=== PATIENT | female | born 1995 | race Caucasian/White ===

== ENCOUNTER 2017-03-24 23:55 | Emergency (ER) | payer BC, OTHER ==
[2017-03-25] MEDS ORDERED: GI Cocktail Oral Solution 30 ML PO ONE (00:05)
--- NOTE | 2017-03-25 00:11 | EDM.PDOC ---
ED HPI GENERAL MEDICAL PROBLEM - General Chief Complaint: Abdominal Pain Stated Complaint: Epigastric pain, heartburn Time Seen by Provider: 03/25/17 00:04 Source of Information: Reports: Patient History Limitations: Reports: No Limitations - History of Present Illness INITIAL COMMENTS - FREE TEXT/NARRATIVE: Patient reports having epigastric pain 10-15 minutes after taking her zoloft this evening. She reports she ate a chicken sandwich at around 2130 which is late for her. She does not usually eat anything this late. Complains of sore throat for the last 2 days with night sweats and chills. Works at a daycare. Recent surgery includes cholecystectomy in October, February had tonsils and adenoids removed. Zoloft for anxiety. States pain is in the epigastric region , states some radiation to her back. Denies headache, SOB, chest pain, no blood in urine or stool. No diarrhea, nausea, or vomiting. No history of heart or lung conditions. Has hereditary spherocytosis. Onset: Today, Sudden Location: Reports: Abdomen Quality: Reports: Burning Severity: Mild Improves with: Reports: None Worsens with: Reports: None Associated Symptoms: Reports: Fever/Chills epigastric pain Pain Score (Numeric/FACES): 8 - Related Data Allergies Allergy/AdvReac Type Severity Reaction Status Date / Time No Known Allergies Allergy Verified 03/25/17 00:06 Home Meds: Home Meds Sertraline [Zoloft] 100 mg PO BEDTIME 03/25/17 [History] ED ROS GENERAL - Review of Systems Review Of Systems: See Below Constitutional: Reports: Chills, Night Sweats HEENT: Reports: Throat Pain Respiratory: Reports: No Symptoms Cardiovascular: Reports: No Symptoms Endocrine: Reports: No Symptoms GI/Abdominal: Reports: Abdominal Pain : Reports: No Symptoms Musculoskeletal: Reports: No Symptoms Skin: Reports: No Symptoms Neurological: Reports: No Symptoms Psychiatric: Reports: No Symptoms Hematologic/Lymphatic: Reports: No Symptoms Immunologic: Reports: No Symptoms ED EXAM, GI/ABD - Physical Exam Exam: See Below Exam Limited By: No Limitations General Appearance: Alert, WD/WN, No Apparent Distress Eyes: Bilateral: EOMI Ears: Normal TMs Nose: Normal Inspection Throat/Mouth: Normal Inspection, Inflammation (posterior oropharynx) Head: Atraumatic, Normocephalic Neck: Full Range of Motion, Lymphadenopathy (R), Tender Lateral. No: Carotid Bruit Respiratory/Chest: No Respiratory Distress, Lungs Clear, Normal Breath Sounds, No Accessory Muscle Use, Chest Non-Tender Cardiovascular: Normal Peripheral Pulses, Regular Rate, Rhythm, No Edema, No Murmur GI/Abdominal Exam: Normal Bowel Sounds, Soft, No Organomegaly, No Distention, No Abnormal Bruit, No Mass, Tender (to mid epigastric region) Back Exam: Normal Inspection Extremities: Normal Inspection, Normal Range of Motion, Non-Tender, No Pedal Edema, Normal Capillary Refill Neurological: Alert, Oriented, CN II-XII Intact, Normal Cognition, Normal Gait, Normal Reflexes, No Motor/Sensory Deficits Psychiatric: Normal Affect, Normal Mood Skin Exam: Warm, Dry, Intact, Normal Color Lymphatic: No Adenopathy Course - Vital Signs Last Recorded V/S: Last Vital Signs Temp 36.5 C 03/24/17 23:55 Pulse 70 03/24/17 23:55 Resp 20 03/24/17 23:55 BP 132/86 03/24/17 23:55 Pulse Ox 97 03/24/17 23:55 - Orders/Labs/Meds Orders: Active Orders 24 hr Category Date Time Status STREP SCRN A RAPID W CULT CONF [RM] Stat Lab 03/25/17 00:05 Uncollected GI Cocktail Med 03/25/17 00:05 Once 30 ml PO ONETIME ONE Departure - Departure Time of Disposition: 00:46 Disposition: Home, Self-Care 01 Condition: Good Clinical Impression: GERD (gastroesophageal reflux disease) - Discharge Information Instructions: Food Choices for Gastroesophageal Reflux Disease, Adult, Heartburn, [id number] Additional Instructions: Make sure to be careful of the foods you eat at night If you continue to have heartburn problems, see a primary care provider as needed Drink plenty of water Eat food that is lower in fat and grease I have included instructions for heartburn and diet ideas Please call us at any time if you have any questions or concerns - Problem List & Annotations (1) GERD (gastroesophageal reflux disease) SNOMED Code(s): 118938109 Code(s): K21.9 - GASTRO-ESOPHAGEAL REFLUX DISEASE WITHOUT ESOPHAGITIS Status: Acute Priority: Low Current Visit: Yes Qualifiers: Esophagitis presence: esophagitis presence not specified Qualified Code(s) : K21.9 - Gastro-esophageal reflux disease without esophagitis - Problem List Review Problem List Initiated/Reviewed/Updated: Yes - My Orders Last 24 Hours: My Active Orders 03/25/17 00:05 STREP SCRN A RAPID W CULT CONF [RM] Stat GI Cocktail 30 ml PO ONETIME ONE - Assessment/Plan Last 24 Hours: My Active Orders 03/25/17 00:05 STREP SCRN A RAPID W CULT CONF [RM] Stat GI Cocktail 30 ml PO ONETIME ONE Assessment:: GERD Plan: Make sure to be careful of the foods you eat at night If you continue to have heartburn problems, see a primary care provider as needed Drink plenty of water Eat food that is lower in fat and grease I have included instructions for heartburn and diet ideas Please call us at any time if you have any questions or concerns
[2017-03-25] MEDS ORDERED: Calcium Carbonate 750 MG Tab.Chew PO ONE (00:46)
== END 2017-03-25 00:58 | disposition home or self-care (01) ==
LOC: VM.ED 23:55
DX: K21.9 Gastro-esophageal reflux disease without esophagitis (principal)
CPT/HCPCS: 87081; 87880; 99283; A9270

== ENCOUNTER 2017-10-20 17:15 | Emergency (ER) | payer BC, OTHER ==
[2017-10-20] MEDS: Take Home: Doxycycline 100 MG Tab, 4 Tab Pack PO ONE (18:25)
--- NOTE | 2017-10-21 13:31 | EDM.PDOC ---
ED HPI GENERAL MEDICAL PROBLEM - General Chief Complaint: Gastrointestinal Problem Stated Complaint: chlamydia Time Seen by Provider: 10/20/17 17:35 Source of Information: Reports: Patient History Limitations: Reports: No Limitations - History of Present Illness INITIAL COMMENTS - FREE TEXT/NARRATIVE: PtAni was seen at [facility] in [place] on Wednesday and diagnosed with a UTI. She was experiencing dysuria and frequency. No fever or chills. She was started on Macrobid. She also was experiencing some vaginal discharge and was diagnosed with chlamydia. She was prescribed 1 one-time dose of azithromycin which she took, and subsequently vomited back up. She states that she is not experiencing any fever or chills. She is concerned at her chlamydia isn't treated because she vomited shortly after taking it. Onset: Today Location: Reports: Pelvis (dysuria, frequency, vaginal discharge) Quality: Reports: Ache Severity: Moderate Vaginal Pain Score (Numeric/FACES): 6 - Related Data Allergies Allergy/AdvReac Type Severity Reaction Status Date / Time spermicide Allergy Other Uncoded 10/20/17 17:49 Home Meds: Home Meds Sertraline [Zoloft] 200 mg PO BEDTIME 03/25/17 [History] medroxyPROGESTERone Acetate [Depo-Provera] 150 mg IM ASDIRECTED 06/21/17 [ History] Nitrofurantoin Macrocrystal [Macrodantin] 100 mg BID 10/20/17 [History] hydrOXYzine HCl [hydrOXYzine] 10 mg BEDTIME 10/20/17 [History] Past Medical History Gastrointestinal History: Reports: Other (See Below) Other Gastrointestinal History: enlarged spleen Musculoskeletal History: Reports: Other (See Below) Other Musculoskeletal History: "bad hips" Neurological History: Reports: Concussion, Migraines Psychiatric History: Reports: Anxiety, Depression Hematologic History: Reports: Other (See Below) Other Hematologic History: heredity spherecytosis - Past Surgical History HEENT Surgical History: Reports: Adenoidectomy, Tonsillectomy, Other (See Below) Other HEENT Surgeries/Procedures: wisdom teeth removed GI Surgical History: Reports: Cholecystectomy, Other (See Below) Other GI Surgeries/Procedures: October 2016 Social & Family History - Tobacco Use Smoking Status *Q: Never Smoker - Recreational Drug Use Recreational Drug Use: No ED ROS GENERAL - Review of Systems Review Of Systems: See Below Constitutional: Reports: No Symptoms HEENT: Reports: No Symptoms Respiratory: Reports: No Symptoms Cardiovascular: Reports: No Symptoms Endocrine: Reports: No Symptoms GI/Abdominal: Reports: No Symptoms : Reports: Discharge, Dysuria, Frequency Musculoskeletal: Reports: No Symptoms Skin: Reports: No Symptoms Neurological: Reports: No Symptoms Psychiatric: Reports: No Symptoms Hematologic/Lymphatic: Reports: No Symptoms Immunologic: Reports: No Symptoms ED EXAM, GENERAL - Physical Exam Exam: See Below Exam Limited By: No Limitations General Appearance: Alert, WD/WN, No Apparent Distress Head: Atraumatic, Normocephalic Neck: Normal Inspection, Supple, Non-Tender, Full Range of Motion Respiratory/Chest: No Respiratory Distress, Lungs Clear, Normal Breath Sounds, No Accessory Muscle Use, Chest Non-Tender Cardiovascular: Normal Peripheral Pulses, Regular Rate, Rhythm, No Edema, No Gallop, No JVD, No Murmur, No Rub Peripheral Pulses: 3+: Radial (L), Radial (R) GI/Abdominal: Normal Bowel Sounds, Soft, Non-Tender, No Organomegaly, No Distention, No Abnormal Bruit, No Mass (Female) Exam: Deferred Rectal (Female) Exam: Deferred Back Exam: Normal Inspection, Full Range of Motion, NT Extremities: Normal Inspection, Normal Range of Motion, Non-Tender, Normal Capillary Refill, No Pedal Edema Neurological: Alert, Oriented, CN II-XII Intact, Normal Cognition, Normal Gait, Normal Reflexes, No Motor/Sensory Deficits Psychiatric: Normal Affect, Normal Mood Skin Exam: Warm, Dry, Intact, Normal Color, No Rash Course - Vital Signs Last Recorded V/S: Last Vital Signs Temp 36.6 C 10/20/17 17:15 Pulse 80 10/20/17 17:15 Resp 16 10/20/17 17:15 BP 126/81 10/20/17 17:15 Pulse Ox - Orders/Labs/Meds Meds: Medications Discontinued Medications Generic Name Dose Route Start Last Admin Trade Name Freq PRN Reason Stop Dose Admin Doxycycline Monohydrate 1 packet 10/20/17 18:06 10/20/17 18:25 Take Home: Doxycycline 100 Mg, 4 Tab Pack PO 10/20/17 18:07 1 packet ONETIME ONE Administration Departure - Departure Time of Disposition: 18:25 Disposition: Home, Self-Care 01 Condition: Good Clinical Impression: Chlamydia, UTI (urinary tract infection) - Discharge Information Instructions: Nausea and Vomiting, Adult, [id number], Doxycycline tablets or capsules, Chlamydia, Female, [id number] Referrals: PCP,Not In Area [Primary Care Provider] - Forms: ED Department Discharge Additional Instructions: Continue with the nitrofurantoin Start doxycycline 100mg twice daily until gone Follow-up in clinic if not improving
== END 2017-10-20 18:25 | disposition home or self-care (01) ==
LOC: VM.ED 17:15
DX: N39.0 Urinary tract infection, site not specified (principal); A74.9 Chlamydial infection, unspecified; Z91.048 Other nonmedicinal substance allergy status
CPT/HCPCS: 99283; A9270-GY

== ENCOUNTER 2017-10-28 23:36 | Emergency (ER) | payer BC, OTHER ==
[2017-10-28] MEDS ORDERED: Lactated Ringers 1,000 ML IV ONE (23:47)
[2017-10-28] MEDS ORDERED: Sodium Chloride 0.9% 10 ML Syringe FLUSH PRN (23:47)
[2017-10-28] MEDS ORDERED: Ondansetron 4 MG/2 ML SDV IVPUSH ONE (23:48)
[2017-10-29 00:45] LABS: CHLORIDE,CL 103 mmol/L (98-107); SODIUM,NA 137 mmol/L (136-145)
--- NOTE | 2017-10-29 00:49 | EDM.PDOC ---
ED HPI GENERAL MEDICAL PROBLEM - General Chief Complaint: General Stated Complaint: N/V; marijuana use Time Seen by Provider: 10/28/17 23:41 Source of Information: Reports: Patient, EMS Notes Reviewed, RN, RN Notes Reviewed History Limitations: Reports: No Limitations - History of Present Illness INITIAL COMMENTS - FREE TEXT/NARRATIVE: Patient is brought to the ED at [facility] via EMS for N/V and marijuana use. Patient states she was at a constitution party earlier this evening and he states she consumed "edibles" that contained a large amount of marijuana. Patient states she feels very tired. She feels dehydrated. Otherwise, no other concerns. Onset Date: 10/28/17 - Related Data Allergies Allergy/AdvReac Type Severity Reaction Status Date / Time spermicide Allergy Other Uncoded 10/20/17 17:49 Home Meds: Home Meds Sertraline [Zoloft] 200 mg PO BEDTIME 03/25/17 [History] medroxyPROGESTERone Acetate [Depo-Provera] 150 mg IM ASDIRECTED 06/21/17 [ History] Nitrofurantoin Macrocrystal [Macrodantin] 100 mg PO BID 10/20/17 [History] hydrOXYzine HCl [hydrOXYzine] 10 mg PO BEDTIME 10/20/17 [History] Past Medical History Gastrointestinal History: Reports: Other (See Below) Other Gastrointestinal History: enlarged spleen Musculoskeletal History: Reports: Other (See Below) Other Musculoskeletal History: "bad hips" Neurological History: Reports: Concussion, Migraines Psychiatric History: Reports: Anxiety, Depression Hematologic History: Reports: Other (See Below) Other Hematologic History: heredity spherecytosis - Past Surgical History HEENT Surgical History: Reports: Adenoidectomy, Tonsillectomy, Other (See Below) Other HEENT Surgeries/Procedures: wisdom teeth removed GI Surgical History: Reports: Cholecystectomy, Other (See Below) Other GI Surgeries/Procedures: October 2016 Social & Family History - Tobacco Use Smoking Status *Q: Never Smoker - Recreational Drug Use Recreational Drug Use: No ED ROS GENERAL - Review of Systems Review Of Systems: See Below Constitutional: Denies: Fever, Chills, Weakness Respiratory: Denies: Shortness of Breath, Cough Cardiovascular: Denies: Chest Pain, Palpitations GI/Abdominal: Reports: Nausea, Vomiting. Denies: Abdominal Pain Skin: Reports: No Symptoms Neurological: Reports: No Symptoms. Denies: Dizziness, Headache ED EXAM, GENERAL - Physical Exam Exam: See Below Exam Limited By: No Limitations General Appearance: Alert, No Apparent Distress Respiratory/Chest: No Respiratory Distress, Lungs Clear, Normal Breath Sounds Cardiovascular: Normal Peripheral Pulses, Regular Rate, Rhythm Peripheral Pulses: 2+: Radial (L), Radial (R) GI/Abdominal: Normal Bowel Sounds, Soft, Non-Tender Neurological: Alert, Oriented Skin Exam: Warm, Dry, Intact, Normal Color Course - Vital Signs Last Recorded V/S: Last Vital Signs Temp 35.5 C 10/28/17 23:36 Pulse 100 10/28/17 23:36 Resp 16 10/28/17 23:36 BP 135/85 10/28/17 23:36 Pulse Ox 98 10/28/17 23:36 - Orders/Labs/Meds Orders: Active Orders 24 hr Category Date Time Status ACETAMINOPHEN [CHEM] Stat Lab 10/29/17 00:08 Results BASIC METABOLIC PANEL,BMP [CHEM] Stat Lab 10/28/17 23:42 Results CARBOXY-THC BY GC/MS Stat Lab 10/29/17 00:31 Received UA W/MICROSCOPIC [URIN] Stat Lab 10/28/17 23:43 Ordered Sodium Chloride 0.9% [Saline Flush] Med 10/28/17 23:47 Active 10 ml FLUSH ASDIRECTED PRN Peripheral IV Insertion Adult [OM.PC] Routine Oth 10/28/17 23:47 Ordered Medication Orders Sodium Chloride (Saline Flush) 10 ml FLUSH ASDIRECTED PRN PRN Reason: Keep Vein Open Labs: Laboratory Tests 10/28/17 10/28/17 10/29/17 Range/Units 00:08 23:43 00:08 WBC 10.8 H (4.0-10.0) x10^3/uL RBC 4.44 (4.00-5.50) x10^6/uL Hgb 14.3 (12.0-16.0) g/dL Hct 39.5 (33.0-47.0) % MCV 89.0 (78.0-93.0) fL MCH 32.2 H (26.0-32.0) pg MCHC 36.2 H (32.0-36.0) g/dL RDW Coeff of [place] 12.3 (10.0-15.0) % Plt Count 293 (130-400) x10^3/uL Neut % (Auto) 75.8 (50.0-80.0) % Lymph % (Auto) 19.2 L (25.0-50.0) % [place] % (Auto) 4.2 (2.0-11.0) % Eos % (Auto) 0.6 (0.0-4.0) % Baso % (Auto) 0.2 (0.2-1.2) % Sodium 137 (136-145) mmol/L Potassium 3.1 L (3.5-5.1) mmol/L Chloride 103 (98-107) mmol/L Carbon Dioxide 23 (21-32) mmol/L Anion Gap 14.1 BUN 16 (7-18) mg/dL Creatinine 0.8 (0.55-1.02) mg/dL Est Cr Clr Drug Dosing TNP Estimated GFR (MDRD) > 60 Glucose 156 H (74-106) mg/dL Calcium 9.0 (8.5-10.1) mg/dL Urine Color Yellow (YELLOW) Urine Appearance Clear (CLEAR) Urine pH 5.5 (5.0-8.0) Ur Specific [place] >=1.030 Urine Protein Negative (NEGATIVE) mg/dL Urine Glucose (UA) Negative (NEGATIVE) mg/dL Urine Ketones Negative (NEGATIVE) mg/dL Urine Occult Blood Negative (NEGATIVE) Urine Nitrite Negative (NEGATIVE) Urine Bilirubin Negative (NEGATIVE) Urine Urobilinogen 0.2 (0.2) EU/dL Ur Leukocyte Esterase Negative (NEGATIVE) Urine RBC 0-5 (NOT SEEN) /HPF Urine WBC 0-5 (NOT SEEN) /HPF Ur Squamous Epith Cells Few H (NEGATIVE) /HPF Urine Bacteria Rare (NEGATIVE) /HPF Urine Mucus Not seen (NEGATIVE) /LPF Urine Opiates Screen (NEGATIVE) Ur Buprenorphine Scrn (NEGATIVE) Ur Oxycodone Screen (NEGATIVE) Urine Methadone Screen (NEGATIVE) Ur Barbiturates Screen (NEGATIVE) Ur Tricyclics Screen (NEGATIVE) Ur Amphetamine Screen (NEGATIVE) U Methamphetamines Scrn (NEGATIVE) Urine MDMA Screen (NEGATIVE) U Benzodiazepines Scrn (NEGATIVE) U Cocaine Metab Screen (NEGATIVE) U Marijuana (THC) Screen (NEGATIVE) 10/29/17 Range/Units 00:31 WBC (4.0-10.0) x10^3/uL RBC (4.00-5.50) x10^6/uL Hgb (12.0-16.0) g/dL Hct (33.0-47.0) % MCV (78.0-93.0) fL MCH (26.0-32.0) pg MCHC (32.0-36.0) g/dL RDW Coeff of [place] (10.0-15.0) % Plt Count (130-400) x10^3/uL Neut % (Auto) (50.0-80.0) % Lymph % (Auto) (25.0-50.0) % [place] % (Auto) (2.0-11.0) % Eos % (Auto) (0.0-4.0) % Baso % (Auto) (0.2-1.2) % Sodium (136-145) mmol/L Potassium (3.5-5.1) mmol/L Chloride (98-107) mmol/L Carbon Dioxide (21-32) mmol/L Anion Gap BUN (7-18) mg/dL Creatinine (0.55-1.02) mg/dL Est Cr Clr Drug Dosing Estimated GFR (MDRD) Glucose (74-106) mg/dL Calcium (8.5-10.1) mg/dL Urine Color (YELLOW) Urine Appearance (CLEAR) Urine pH (5.0-8.0) Ur Specific [place] Urine Protein (NEGATIVE) mg/dL Urine Glucose (UA) (NEGATIVE) mg/dL Urine Ketones (NEGATIVE) mg/dL Urine Occult Blood (NEGATIVE) Urine Nitrite (NEGATIVE) Urine Bilirubin (NEGATIVE) Urine Urobilinogen (0.2) EU/dL Ur Leukocyte Esterase (NEGATIVE) Urine RBC (NOT SEEN) /HPF Urine WBC (NOT SEEN) /HPF Ur Squamous Epith Cells (NEGATIVE) /HPF Urine Bacteria (NEGATIVE) /HPF Urine Mucus (NEGATIVE) /LPF Urine Opiates Screen Negative (NEGATIVE) Ur Buprenorphine Scrn Negative (NEGATIVE) Ur Oxycodone Screen Negative (NEGATIVE) Urine Methadone Screen Negative (NEGATIVE) Ur Barbiturates Screen Negative (NEGATIVE) Ur Tricyclics Screen Negative (NEGATIVE) Ur Amphetamine Screen Negative (NEGATIVE) U Methamphetamines Scrn Negative (NEGATIVE) Urine MDMA Screen Negative (NEGATIVE) U Benzodiazepines Scrn Negative (NEGATIVE) U Cocaine Metab Screen Negative (NEGATIVE) U Marijuana (THC) Screen Positive H (NEGATIVE) Meds: Medications Generic Name Dose Route Start Last Admin Trade Name Freq PRN Reason Stop Dose Admin Sodium Chloride 10 ml 10/28/17 23:47 Saline Flush FLUSH ASDIRECTED PRN Keep Vein Open Discontinued Medications Generic Name Dose Route Start Last Admin Trade Name Freq PRN Reason Stop Dose Admin Lactated Ringer's 1,000 mls @ 999 mls/hr 10/28/17 23:47 10/29/17 00:21 Ringers, Lactated IV 10/29/17 00:47 999 mls/hr ONETIME ONE Administration Ondansetron HCl 4 mg 10/28/17 23:48 10/29/17 00:22 Zofran IVPUSH 10/28/17 23:49 4 mg ONETIME ONE Administration Departure - Departure Time of Disposition: 01:16 Disposition: Home, Self-Care 01 Condition: Good Clinical Impression: Marijuana abuse Nausea & vomiting Qualifiers: Vomiting type: unspecified Vomiting Intractability: non-intractable Qualified Code(s): R11.2 - Nausea with vomiting, unspecified - Discharge Information Instructions: Nausea and Vomiting, Adult, Cannabis Use Disorder Forms: ED Department Discharge Additional Instructions: 1. Stay well hydrated and rest 2. Avoid marijuana use 3. See your Primary as symptoms warrant 4. Call us with any questions or concerns - Problem List Review Problem List Initiated/Reviewed/Updated: Yes - My Orders Last 24 Hours: My Active Orders 10/28/17 23:42 BASIC METABOLIC PANEL,BMP [CHEM] Stat 10/28/17 23:43 UA W/MICROSCOPIC [URIN] Stat 10/28/17 23:47 Sodium Chloride 0.9% [Saline Flush] 10 ml FLUSH ASDIRECTED PRN Peripheral IV Insertion Adult [OM.PC] Routine 10/29/17 00:08 ACETAMINOPHEN [CHEM] Stat 10/29/17 00:31 CARBOXY-THC BY GC/MS Stat - Assessment/Plan Last 24 Hours: My Active Orders 10/28/17 23:42 BASIC METABOLIC PANEL,BMP [CHEM] Stat 10/28/17 23:43 UA W/MICROSCOPIC [URIN] Stat 10/28/17 23:47 Sodium Chloride 0.9% [Saline Flush] 10 ml FLUSH ASDIRECTED PRN Peripheral IV Insertion Adult [OM.PC] Routine 10/29/17 00:08 ACETAMINOPHEN [CHEM] Stat 10/29/17 00:31 CARBOXY-THC BY GC/MS Stat Assessment:: Nausea and vomiting secondary to marijuana abuse
[2017-10-29 01:19] LABS: ACETAMINOPHEN 0 ug/ml (10-30)
== END 2017-10-29 02:14 | disposition home or self-care (01) ==
LOC: VM.ED 23:36
DX: F12.10 Cannabis abuse, uncomplicated (principal); R11.2 Nausea with vomiting, unspecified; Z88.8 Allergy status to other drugs, medicaments and biological substances; Z79.899 Other long term (current) drug therapy
CPT/HCPCS: 36415; 80048; 80305; 80349; 81001; 85025; 96361; 96374; 99284; G0480; J2405; J7120

== ENCOUNTER 2018-08-09 14:36 | Emergency (ER) | payer BC, OTHER ==
[2018-08-09] MEDS ORDERED: Sodium Chloride 0.9% 10 ML Syringe FLUSH PRN (15:09)
[2018-08-09 15:50] LABS: CHLORIDE,CL 107 mmol/L (98-107); SODIUM,NA 141 mmol/L (136-145)
[2018-08-09 15:51] LABS: ANION GAP 16.9 mmol/L (10-20)
[2018-08-09] MEDS ORDERED: Iopamidol 612 MG/ML 100 ML Bottle IVPUSH ONE (15:55)
--- NOTE | 2018-08-09 16:22 | EDM.PDOC ---
ED HPI GENERAL MEDICAL PROBLEM - General Chief Complaint: Abdominal Pain Stated Complaint: ABDOMINAL PAIN Time Seen by Provider: 08/09/18 14:41 Source of Information: Reports: Patient, Old Records, RN, RN Notes Reviewed History Limitations: Reports: No Limitations - History of Present Illness INITIAL COMMENTS - FREE TEXT/NARRATIVE: Patient presents to the ED at [facility] complaining of abdominal pain that started about 2 weeks ago. Her pain is bilateral lower pelvic with rebound tenderness of the RLQ. Patient denies any UTI symptoms. Patient states intercourse is painful before and after. She denies any nausea, vomiting, or diarrhea. Her appetite has been normal. She is drinking fluids ok. She states the patient radiates to the left lower back. Her last BM was 4 days ago. Denies any vaginal odor or discharge. She is currently on Depro Provera. Patient was seen in clinic earlier for the same issue. She states she had lab work completed and "it was all normal." She was set up for a pelvic ultrasound. Patient has not had any fevers or chills. No recent infections. Lower Abdomen Pain Score (Numeric/FACES): 5 - Related Data Allergies Allergy/AdvReac Type Severity Reaction Status Date / Time spermicide Allergy Other Uncoded 08/09/18 15:31 Home Meds: Home Meds FLUoxetine HCl [Prozac] 20 mg DAILY 08/09/18 [History] hydrOXYzine HCl [hydrOXYzine] 25 mg DAILY 08/09/18 [History] Past Medical History Gastrointestinal History: Reports: Other (See Below) Other Gastrointestinal History: enlarged spleen Musculoskeletal History: Reports: Other (See Below) Other Musculoskeletal History: "bad hips". foot surgery Neurological History: Reports: Concussion, Migraines Psychiatric History: Reports: Anxiety, Depression Hematologic History: Reports: Other (See Below) Other Hematologic History: heredity spherecytosis - Past Surgical History HEENT Surgical History: Reports: Adenoidectomy, Tonsillectomy, Other (See Below) Other HEENT Surgeries/Procedures: wisdom teeth removed GI Surgical History: Reports: Cholecystectomy, Other (See Below) Other GI Surgeries/Procedures: October 2016 Social & Family History - Tobacco Use Smoking Status *Q: Never Smoker - Recreational Drug Use Recreational Drug Use: No ED ROS GENERAL - Review of Systems Review Of Systems: See Below Constitutional: Denies: Fever, Chills, Weakness, Decreased Appetite Respiratory: Denies: Shortness of Breath, Cough Cardiovascular: Denies: Chest Pain, Palpitations GI/Abdominal: Denies: Nausea, Vomiting : Reports: Pain. Denies: Dysuria, Frequency Musculoskeletal: Reports: Back Pain (lower left back) Skin: Reports: No Symptoms Neurological: Reports: No Symptoms ED EXAM, GI/ABD - Physical Exam Exam: See Below Exam Limited By: No Limitations General Appearance: Alert, No Apparent Distress Respiratory/Chest: No Respiratory Distress, Lungs Clear, Normal Breath Sounds Cardiovascular: Normal Peripheral Pulses, Regular Rate, Rhythm GI/Abdominal Exam: Normal Bowel Sounds, Soft, Rebound (RLQ), Tender (RLQ) Back Exam: Normal Inspection Neurological: Alert, Oriented Skin Exam: Warm, Dry, Intact, Normal Color Course - Vital Signs Last Recorded V/S: Last Vital Signs Temp 37.1 C 08/09/18 14:55 Pulse 98 08/09/18 14:55 Resp 16 08/09/18 14:55 BP 139/88 08/09/18 14:55 Pulse Ox 98 08/09/18 14:55 - Orders/Labs/Meds Orders: Active Orders 24 hr Category Date Time Status Sodium Chloride 0.9% [Saline Flush] Med 08/09/18 15:09 Active 10 ml FLUSH ASDIRECTED PRN methylPREDNISolone Sod Succ [Solu-MEDROL] Med 08/09/18 17:12 Once 125 mg IVPUSH ONETIME ONE Peripheral IV Insertion Adult [OM.PC] Routine Oth 08/09/18 15:09 Ordered Medication Orders Sodium Chloride (Saline Flush) 10 ml FLUSH ASDIRECTED PRN PRN Reason: Keep Vein Open Labs: Laboratory Tests 08/09/18 Range/Units 15:25 Sodium 141 (136-145) mmol/L Potassium 3.9 (3.5-5.1) mmol/L Chloride 107 (98-107) mmol/L Carbon Dioxide 21 (21-32) mmol/L Anion Gap 16.9 (10-20) mmol/L BUN 15 (7-18) mg/dL Creatinine 0.9 (0.55-1.02) mg/dL Est Cr Clr Drug Dosing 81.11 mL/min Estimated GFR (MDRD) > 60 Glucose 109 H (74-106) mg/dL Calcium 9.3 (8.5-10.1) mg/dL Amylase 57 (25-115) U/L Lipase 139 (73-393) U/L Meds: Medications Generic Name Dose Route Start Last Admin Trade Name Ananda PRN Reason Stop Dose Admin Sodium Chloride 10 ml 08/09/18 15:09 Saline Flush FLUSH ASDIRECTED PRN Keep Vein Open Discontinued Medications Generic Name Dose Route Start Last Admin Trade Name Ananda PRN Reason Stop Dose Admin Iopamidol 100 ml 08/09/18 15:55 08/09/18 16:35 Isovue-300 (61%) IVPUSH 08/09/18 15:56 100 ml ONETIME ONE Administration - Radiology Interpretation Free Text/Narrative:: CT Abd/Pelvis w/contrast: Possible early/mild changes of colitis involving primarily the ascending segment extending into the hepatic fissure, described in report. See scanned report for details CT Results Date: 08/09/18 CT Results Time: 17:05 Departure - Departure Time of Disposition: 17:14 Disposition: Home, Self-Care 01 Condition: Good Clinical Impression: Colitis - Discharge Information *PRESCRIPTION DRUG MONITORING PROGRAM REVIEWED*: Not Applicable *COPY OF PRESCRIPTION DRUG MONITORING REPORT IN PATIENT SAMANTHA: Not Applicable Instructions: Colitis Referrals: PCP,Not In Area [Primary Care Provider] - Forms: ED Department Discharge Additional Instructions: 1. Stay well hydrate and rest 2. Eat a bland diet for a couple of weeks to rest your bowels 3. Take medication for the full coarse, even if you are feeling better 4. See your PCP in the next week for a recheck - Problem List Review Problem List Initiated/Reviewed/Updated: Yes - My Orders Last 24 Hours: My Active Orders 08/09/18 15:09 Sodium Chloride 0.9% [Saline Flush] 10 ml FLUSH ASDIRECTED PRN Peripheral IV Insertion Adult [OM.PC] Routine 08/09/18 17:12 methylPREDNISolone Sod Succ [Solu-MEDROL] 125 mg IVPUSH ONETIME ONE - Assessment/Plan Last 24 Hours: My Active Orders 08/09/18 15:09 Sodium Chloride 0.9% [Saline Flush] 10 ml FLUSH ASDIRECTED PRN Peripheral IV Insertion Adult [OM.PC] Routine 08/09/18 17:12 methylPREDNISolone Sod Succ [Solu-MEDROL] 125 mg IVPUSH ONETIME ONE Assessment:: Colitis Plan: Labs and CT discussed with patient. Will give a dose of SoluMedrol today and have patient start a Medrol DosPak tomorrow. F/U with PCP next week for a recheck.
--- NOTE | 2018-08-09 17:08 | CT ---
[id number] CT/CT Abdomen Pelvis W IV EXAM: CT Abdomen Pelvis W IV CLINICAL DATA: RIGHT LOWER QUADRANT PAIN. COMPARISON STUDY: June 2017. FINDINGS: Lung bases are clear. Gallbladder has been resected. Liver, pancreas, spleen, adrenal glands, and kidneys are unremarkable. No urinary tract calculi or obstruction. Ascending segment of the colon demonstrates mild wall thickening/edema extending just past the hepatic flexure. Appendix and small bowel are normal. Uterus and adnexal regions are unremarkable. Trace free fluid in the pelvis, within normal physiologic limits for a reproductive age female. Urinary bladder is underdistended but otherwise unremarkable. IMPRESSION: Possible mild/early changes of colitis involving primarily the ascending segment extending into the hepatic flexure, described above. Correlation with inflammatory markers would be of benefit, as this could represent artifact from mild under distention as well. No other potential etiology for right lower quadrant pain identified in this examination. Von Acevedo MD 08/09/18 0218 Thank you for allowing us to participate in the care of your patient.
[2018-08-09] MEDS ORDERED: methylPREDNISolone Sodium Succinate 125 MG/2 ML SDV IVPUSH ONE (17:12)
== END 2018-08-09 17:35 | disposition home or self-care (01) ==
LOC: VM.ED 14:36
DX: K52.9 Noninfective gastroenteritis and colitis, unspecified (principal); Z88.8 Allergy status to other drugs, medicaments and biological substances
CPT/HCPCS: 36415; 74177; 80048; 82150; 83690; 96374; 99284; J2930; Q9967

== ENCOUNTER 2019-04-24 13:04 | Emergency (ER) | payer BC ==
[2019-04-24] MEDS ORDERED: diphenhydrAMINE 25 MG Cap PO ONE (13:13)
[2019-04-24] MEDS ORDERED: Famotidine 20 MG Tab PO ONE (13:13)
--- NOTE | 2019-04-24 13:19 | EDM.PDOC ---
ED HPI GENERAL MEDICAL PROBLEM - General Chief Complaint: Allergic Reaction Stated Complaint: felt like throat was closing tongue was getting more enlarged Time Seen by Provider: 04/24/19 13:05 Source of Information: Reports: Patient History Limitations: Reports: No Limitations - History of Present Illness INITIAL COMMENTS - FREE TEXT/NARRATIVE: Patient states she was at [employer] eating a chicken basket and a Wednesday while chewing she felt like she started to choke her throat was getting tight and her lips were going numb and tingling she was able get the piece chicken backup at that time and gave herself epinephrine injection due to feeling that she was exposed to peanuts which is Atarax before and states it was the same type same symptoms she felt that signs and symptoms started to resolve pretty quickly EMS was called and transported her to the hospital Upon arrival patient was text messaging on the phone in no acute distress vital signs normal except for tachycardia status post epinephrine injection she has no other complaints at this time Onset: Today Duration: Minutes: - Related Data Allergies Allergy/AdvReac Type Severity Reaction Status Date / Time spermicide Allergy Other Uncoded 08/09/18 15:31 Home Meds: Home Meds FLUoxetine HCl [Prozac] 20 mg DAILY 08/09/18 [History] hydrOXYzine HCl [hydrOXYzine] 25 mg DAILY 08/09/18 [History] methylPREDNISolone [Medrol] 4 mg PO ASDIRECTED #1 dosepk 08/09/18 [Rx] Past Medical History Gastrointestinal History: Reports: Other (See Below) Other Gastrointestinal History: enlarged spleen Musculoskeletal History: Reports: Other (See Below) Other Musculoskeletal History: "bad hips". foot surgery Neurological History: Reports: Concussion, Migraines Psychiatric History: Reports: Anxiety, Depression Hematologic History: Reports: Other (See Below) Other Hematologic History: heredity spherecytosis - Past Surgical History HEENT Surgical History: Reports: Adenoidectomy, Tonsillectomy, Other (See Below) Other HEENT Surgeries/Procedures: wisdom teeth removed GI Surgical History: Reports: Cholecystectomy, Other (See Below) Other GI Surgeries/Procedures: October 2016 ED ROS ALLERGIC REACTION - Review of Systems Review Of Systems: See Below Constitutional: Reports: No Symptoms HEENT: Reports: Throat Swelling, Other (Numbness and tingling to the lips,) Respiratory: Denies: Shortness of Breath, Wheezing, Pleuritic Chest Pain, Cough Cardiovascular: Denies: Chest Pain, Blood Pressure Problem, Claudication, Dyspnea on Exertion, Lightheadedness, Syncope Endocrine: Reports: No Symptoms GI/Abdominal: Reports: No Symptoms : Reports: No Symptoms Musculoskeletal: Reports: No Symptoms Skin: Reports: No Symptoms Neurological: Reports: No Symptoms Psychiatric: Reports: No Symptoms Hematologic/Lymphatic: Reports: No Symptoms Immunologic: Denies: Anaphylaxis ED EXAM GENERAL NO PERIP PULSE - Physical Exam Exam: See Below Exam Limited By: No Limitations General Appearance: Alert, WD/WN, No Apparent Distress, Other (Patient has patent airway Mallampati of 1 there's no edema to the tongue and oropharynx posterior oropharynx uvula is inline she has normal speech) Eye Exam: Bilateral Eye: EOMI, PERRL Ears: Normal External Exam, Normal Canal, Hearing Grossly Normal, Normal TMs Nose: Normal Inspection, Normal Mucosa, No Blood Throat/Mouth: Normal Inspection, Normal Lips, Normal Teeth, Normal Gums, Normal Oropharynx, Normal Voice, No Airway Compromise. No: Inflammation, Perioral Cyanosis Head: Atraumatic, Normocephalic Neck: Normal Inspection, Supple, Non-Tender, Full Range of Motion Respiratory/Chest: No Respiratory Distress, Lungs Clear, Normal Breath Sounds, No Accessory Muscle Use, Chest Non-Tender Cardiovascular: Normal Peripheral Pulses, Regular Rate, Rhythm, No Edema, No Gallop, No JVD, No Murmur, Tachycardia GI/Abdominal: Normal Bowel Sounds, Soft, Non-Tender, No Organomegaly, No Distention Extremities: Normal Inspection, Normal Range of Motion, Normal Capillary Refill Neurological: Alert, Oriented, CN II-XII Intact, Normal Cognition, Normal Gait, Normal Reflexes, No Motor/Sensory Deficits Psychiatric: Normal Affect, Normal Mood Skin Exam: Warm, Dry, Intact, Normal Color, No Rash Course - Vital Signs Text/Narrative:: Patient will be observed for approximately 2 hours she'll be given 25 mg Benadryl by mouth 20 mg Pepcid by mouth patient rechecked states she feels much better wants to go home states she also has increased anxiety while being in the hospital heart rate is coming down to 112 All vital signs are normal except for mild tachycardia - Orders/Labs/Meds Meds: Medications Discontinued Medications Generic Name Dose Route Start Last Admin Trade Name Freq PRN Reason Stop Dose Admin Diphenhydramine HCl 25 mg 04/24/19 13:13 Benadryl PO 04/24/19 13:14 ONETIME ONE Famotidine 20 mg 04/24/19 13:13 Pepcid PO 04/24/19 13:14 ONETIME ONE Departure - Departure Time of Disposition: 14:30 Disposition: Home, Self-Care 01 Condition: Good Clinical Impression: Allergic reaction - Discharge Information *PRESCRIPTION DRUG MONITORING PROGRAM REVIEWED*: No *COPY OF PRESCRIPTION DRUG MONITORING REPORT IN PATIENT SAMANTHA: No Forms: ED Department Discharge - Problem List & Annotations (1) Allergic reaction SNOMED Code(s): 984893099 Code(s): T78.40XA - ALLERGY, UNSPECIFIED, INITIAL ENCOUNTER Status: Acute Current Visit: Yes
== END 2019-04-24 14:30 | disposition home or self-care (01) ==
LOC: VM.ED 13:04
DX: T78.40XA Allergy, unspecified, initial encounter (principal); Z91.048 Other nonmedicinal substance allergy status; X58.XXXA Exposure to other specified factors, initial encounter
CPT/HCPCS: 99283